=== PATIENT | male | born 1980 | race American Indian/Alaskan Native ===

== ENCOUNTER 2021-10-18 07:00 | Emergency (ER) | payer SELFPAY ==
[2021-10-18 07:27] VITALS: BP 103/72
[2021-10-18] MEDS ORDERED: TETANUS,DIPH,PERTUSS(ACELL) VACCINE 0.5 ML SYRINGE IM ONE (08:10)
[2021-10-18] MEDS ORDERED: LIDOCAINE 2%/EPINEPHRINE 1:200,000 VIAL (20 ML) INFILTRATI ONE (08:10)
[2021-10-18] MEDS ORDERED: HYDROcodone/ACETAMINOPHEN 10-325MG TAB PO ONE (08:10)
--- NOTE | 2021-10-18 08:13 | XRay Report ---
LEFT HAND 2 VIEW(S) INDICATION / CLINICAL INFORMATION: cut with glass COMPARISON: None available. FINDINGS: BONES / JOINT(S): No acute fracture or subluxation. No significant arthritis. SOFT TISSUES: Soft tissue laceration along ulnar aspect of little finger metacarpal. No radiopaque fo reign body ADDITIONAL FINDINGS: None. IMPRESSION: 1. Soft tissue laceration without radiopaque foreign body Signer Name: Shahid Fishman MD Signed: 10/18/2021 8:09 AM Workstation Name: [id number]
--- NOTE | 2021-10-18 09:36 | Emergency Department Report ---
ED Laceration HPI - HPI Chief Complaint: Wound/Laceration Stated Complaint: RIGHT HAND INJURY Time Seen by Provider: 10/18/21 07:59 Occurred When: Today Location: Upper Extremity Tetanus Status: Up to Date (2019) Laceration Symptoms: Yes Pain, No Foreign Body Sensation, No Numbness, No Weakness Other History: This is a 40-year-old male nontoxic, well nourished in appearance, no acute signs of distress presents to the ED with c/o of left hand lateral laceration that occurred this morning prior to arrival. Patient stated that he was shaking the glass bottle to drink which broke into his hand. Patient denies decreased sensation or range of motion. Patient stated bleeding is under control. Denies any numbness, tingling, fever, chills, nausea, vomiting, chest pain, shortness of breath, headache or stiff neck. Patient denies any allergies to significant past medical history. Patient is that he is up-to-date with tetanus as of last year. ED Review of Systems ROS: Stated complaint: RIGHT HAND INJURY Other details as noted in HPI Comment: All other systems reviewed and negative Constitutional: denies: chills, fever Eyes: denies: eye pain, eye discharge, vision change ENT: denies: ear pain, throat pain Respiratory: denies: cough, shortness of breath, wheezing Cardiovascular: denies: chest pain, palpitations Endocrine: no symptoms reported Gastrointestinal: denies: abdominal pain, nausea, diarrhea Genitourinary: denies: urgency, dysuria Musculoskeletal: denies: back pain, joint swelling, arthralgia Skin: denies: rash, lesions Neurological: denies: headache, weakness, paresthesias Psychiatric: denies: anxiety, depression Hematological/Lymphatic: denies: easy bleeding, easy bruising ED Past Medical Hx - Past Medical History Previous Medical History?: No - Surgical History Past Surgical History?: No - Social History Smoking Status: Current Every Day Smoker - Medications Home Medications: Home Medications Medication Instructions Recorded Confirmed Last Taken Type Naproxen 500 mg PO Q12H PRN #12 tab 10/18/21 Unknown Rx Sulfamethoxazole/Trimethoprim 1 each PO BID #14 tab 10/18/21 Unknown Rx [Bactrim DS TAB] Laceration Physical Exam - Exam General: Vital signs noted. No distress. Alert and acting appropriately. Wound Length (cm): 4 (Left lateral hand) Laceration Location: Upper Extremity Laceration Exam: Yes Normal Distal CMS, No Foreign Body, No Exposed Tendon, Vessel, or Nerve, No Tendon Injury ED Course Vital Signs 10/18/21 07:20 Temperature 98.9 F Pulse Rate 57 L Respiratory 14 Rate Blood Pressure 103/72 O2 Sat by Pulse 98 Oximetry - Reevaluation(s) Reevaluation #1: 10/18/21 09:33 Patient is speaking in full sentences with no signs of distress noted. - Laceration /Wound Repair Left Hand Wound Location: upper extremity (Left lateral hand) Wound Length (cm): 4 Wound's Depth, Shape: irregular Wound Explored: clean Irrigated w/ Saline (ccs): 40 Betadine Prep?: Yes Volume Anesthetic (ccs): 3 Wound Repaired With: sutures Suture Size/Type: 4:0, proline Number of Sutures: 7 Layer Closure?: Yes Deep Layer Suture Size/Type: 3:0 (Vicryl) Number Deep Layer Sutures: 2 Sterile Dressing Applied?: Yes Progress: Under sterile field, I used Betadine to clean the area. I then used 40 mL of normal saline to flush the area. I then used 2% lidocaine with epi 1-200,000 and injected 3 mL to the wound. I then used a 3-0 Vicryl with total of 2 stitches placed for the epidermis. I then used a 4-0 Prolene to suture the laceration. Number of stitches 7. I then applied a sterile 4 x 4 with tape. Minimal bleeding noted but is under control. Patient tolerated procedure well with no signs of distress. ED Medical Decision Making - Radiology Data [facility] [address] [place] [address] XRay Report Signed Patient: WOJCIECH HARPER MR#: [id number] : 1980 Acct:[id number] Age/Sex: 40 / M ADM Date: 10/18/21 Loc: ED Attending Dr: Ordering Physician: FABY ISAAC MD Date of Service: 10/18/21 Procedure(s): XR hand 2V LT Accession Number(s): [id number] cc: FABY ISAAC MD Fluoro Time In Minutes: LEFT HAND 2 VIEW(S) INDICATION / CLINICAL INFORMATION: cut with glass COMPARISON: None available. FINDINGS: BONES / JOINT(S): No acute fracture or subluxation. No significant arthritis. SOFT TISSUES: Soft tissue laceration along ulnar aspect of little finger metacarpal. No radiopaque foreign body ADDITIONAL FINDINGS: None. IMPRESSION: 1. Soft tissue laceration without radiopaque foreign body Signer Name: Shahid Fishman MD Signed: 10/18/2021 8:09 AM Workstation Name: [id number] Transcribed By: TL Dictated By: Shahid Fishman MD Electronically Authenticated By: Shahid Fishman MD Signed Date/Time: 10/18/21808 DD/ 8 TD/TT: - Medical Decision Making This is a 40-year-old male that presents with laceration. Patient is stable and was examined by me. The laceration suturing has been performed and has been performed and patient tolerated well. A sterile dressing has been applied. Patient was educated on proper wound care. Patient is discharged with Bactrim. Patient was instructed to return in 10 days for suture removal. Patient was instructed to refer to Follow-up with a primary care doctor in 3-5 days or if symptoms worsen and continue return to emergency room as soon as possible. At time of discharge, the patient does not seem toxic or ill in appearance. No acute signs of distress noted. Patient agrees to discharge treatment plan of care. No further questions noted by the patient. Critical care attestation.: If time is entered above; I have spent that time in minutes in the direct care of this critically ill patient, excluding procedure time. ED Disposition Clinical Impression: Laceration Disposition: 01 HOME / SELF CARE / HOMELESS Is pt being admited?: No Does the pt Need Aspirin: No Condition: Stable Instructions: Laceration Care, Adult Additional Instructions: Follow-up with a primary care doctor in 3-5 days or if symptoms worsen and con tinue return to emergency room as soon as possible. Return in 10 days for suture removal. No physical activity that extremity until suture removal and medically cleared. Prescriptions: Sulfamethoxazole/Trimethoprim [Bactrim DS TAB] 1 each PO BID #14 tab Naproxen 500 mg PO Q12H PRN #12 tab PRN Reason: Pain , Severe (7-10) Referrals: PRIMARY MD TIKI [Primary Care Provider] - 3-5 Days ADELIA SORIA MD [Staff Physician] - 3-5 Days Forms: Work/School Release Form(ED) Time of Disposition: 09:36
[2021-10-18] MEDS ORDERED: BACITRACIN ZINC OINT 28.4 GM TP ONE (10:06)
== END 2021-10-18 10:10 | disposition home or self-care (01) ==
LOC: ED 07:00
DX: S61.412A Laceration without foreign body of left hand, initial encounter (principal); F17.290 Nicotine dependence, other tobacco product, uncomplicated; W25.XXXA Contact with sharp glass, initial encounter; Y93.89 Activity, other specified; Y92.89 Other specified places as the place of occurrence of the external cause; Y99.8 Other external cause status
CPT/HCPCS: 12002; 73120; 99283; J3490; 90715